=== PATIENT | female | born 1965 | race Caucasian/White ===

== ENCOUNTER 2016-12-13 20:07 | Inpatient (IN) ==
[2016-12-13 21:55] LABS: Bilirubin,Urine Negative (Negative); Blood,Urine Negative (Negative); Clarity,Urine Clear (Clear); Color,Urine Yellow (Yellow); Glucose,Urine (UA) Normal (Normal); Ketones,Urine Negative (Negative); Leukocyte Esterase,Urine Negative (Negative); Nitrite,Urine Negative (Negative); PH,Urine 6.5 pH Units (5.0-8.0); Protein,Urine Trace mg/dL (Neg-Trace); Specific Gravity,Urine 1.008 (1.010-1.025); Urobilinogen,Urine Normal (Normal)
[2016-12-13 21:56] LABS: Basophils % 0.2 %; Eosinophils % 0.1 %; Hematocrit 41.2 % (35.3-44.9); Hemoglobin 13.4 g/dL (11.5-15.4); Immature Granulocytes % 0.4 % (0-4); Lymphocytes # 2.3 K/mcL (0.6-4.6); Lymphocytes % 12.5 %; Mean Corpuscular HGB Conc 32.5 g/dL (31.6-35.5); Mean Corpuscular Hemoglobin 27.9 pg (28.0-33.3); Mean Corpuscular Volume 85.8 fL (83.0-100.0); Mean Platelet Volume 11.8 fL (9.4-12.4); Monocytes # 0.6 K/mcL (0.0-1.3); Monocytes % 3.2 %; Neutrophils # 15.3 K/mcL (1.6-8.9); Platelet Count 212 K/mcL (140-400); Red Cell Distribution Width 16.2 % (11.5-14.5); Segmented Neutrophils % 83.6 %
[2016-12-13 21:57] LABS: Bacteria,Urine Few per hpf (None-Few); Hyaline Casts,Urine None Seen per lpf (None-Few); RBC,Urine 0-3 per hpf (0-3); Squamous Epithelial Cell,Urine Many per lpf (None-Few); WBC,Urine 0-3 per hpf (0-3)
--- NOTE | 2016-12-13 22:10 | Emergency Department Note ---
Disposition Clinical Impression: NSTEMI (non-ST elevated myocardial infarction) Disposition: Admitted As Inpatient Condition: Good General Adult HPI - General Chief complaint: ED Altered Mental Status Stated complaint: bryanna,getting confused Time Seen by Provider: 12/13/16 22:05 Source: patient, family Limitations: no limitations - History of Present Illness Pain Scale: 9 - Related Data Home Medications Medication Instructions Recorded Confirmed Aspirin [Adult Low Dose Aspirin EC] 81 mg PO QAM 08/10/15 12/13/16 Atorvastatin [Lipitor] 40 mg PO QPM 08/10/15 12/13/16 Cetirizine HCl [Zyrtec] 10 mg PO QAM 08/10/15 12/13/16 Escitalopram [Lexapro] 20 mg PO QPM 08/10/15 12/13/16 Gabapentin [Neurontin] 600 mg PO QID 08/10/15 12/13/16 Glimepiride [Amaryl] 2 mg PO BID 08/10/15 12/13/16 Lansoprazole [Prevacid] 30 mg PO DAILY 08/10/15 12/13/16 Tizanidine HCl 4 mg PO Q8H PRN 08/10/15 12/13/16 Trazodone HCl [TraZODone] 100 mg PO HS 08/10/15 12/13/16 Montelukast [Singulair] 10 mg PO DAILY 02/03/16 12/13/16 Naproxen Sodium [Aleve] 220 mg PO Q12H PRN 02/03/16 12/13/16 Albuterol Sulfate [Albuterol 2 puff IH Q4H PRN 12/13/16 12/13/16 Inhaler] Metoprolol Succinate 100 mg PO DAILY 12/13/16 12/13/16 Oxycodone HCl/Acetaminophen 1 each PO QID PRN 12/13/16 12/13/16 [Percocet 7.5-325 mg Tablet] hydrOXYzine HCl [Hydroxyzine HCl] 25 mg PO BID PRN 12/13/16 12/13/16 Previous Rx's Medication Instructions Recorded Ibuprofen [Motrin] 600 mg PO TID PRN #0 08/13/15 Allergies Allergy/AdvReac Type Severity Reaction Status Date / Time pregabalin [From Lyrica] Allergy Hives Verified 08/10/15 17:43 Sulfa (Sulfonamide Allergy Hives Verified 08/10/15 17:43 Antibiotics) Varenicline [From Chantix] AdvReac Dizziness Verified 07/27/15 08:38 Past Medical History - Past Medical History Medical history: Reports: cardiomyopathy, COPD, coronary artery disease, dementia, diabetes, hyperlipidemia, hypertension, other Surgical history: Reports: breast surgery, hysterectomy, orthopedic, other, other Psychiatric history: Reports: anxiety, depression - Social History Smoking Status: Current every day smoker Smokeless Tobacco Status: No Alcohol use: Reports: none Drug use: Reports: none Physical Exam - General Limitations: no limitations General appearance: alert, in no apparent distress Course Vital Signs Temperature 98.6 F 12/13/16 20:39 Pulse Rate 90 12/13/16 20:39 Respiratory Rate 16 12/13/16 20:39 Blood Pressure 153/98 12/13/16 20:39 O2 Sat by Pulse Oximetry 94 12/13/16 20:39 Temperature 98.7 F 12/14/16 09:59 Pulse Rate 74 12/14/16 09:59 Respiratory Rate 18 12/14/16 09:59 Blood Pressure 124/75 12/14/16 09:59 O2 Sat by Pulse Oximetry 95 12/14/16 09:59 Oxygen Delivery Oxygen Delivery Room Air Medical Decision Making - Lab Data Result diagrams: 12/14/16 03:12 12/14/16 03:12 Lab Results 12/13/16 12/13/16 12/13/16 Range/Units 21:40 21:43 21:43 WBC 18.3 H (4.3-11.1) K/mcL RBC 4.80 (3.82-4.97) M/mcL Hgb 13.4 (11.5-15.4) g/dL Hct 41.2 (35.3-44.9) % MCV 85.8 (83.0-100.0) fL MCH 27.9 L (28.0-33.3) pg MCHC 32.5 (31.6-35.5) g/dL RDW 16.2 H (11.5-14.5) % Plt Count 212 (140-400) K/mcL MPV 11.8 (9.4-12.4) fL Immature Gran % 0.4 (0-4) % Seg Neutrophils % 83.6 % Lymphocytes % 12.5 % Monocytes % 3.2 % Eosinophils % 0.1 % Basophils % 0.2 % Neutrophils # 15.3 H (1.6-8.9) K/mcL Lymphocytes # 2.3 (0.6-4.6) K/mcL Monocytes # 0.6 (0.0-1.3) K/mcL Eosinophils # 0.0 (0.0-0.6) K/mcL Basophils # 0.0 (0.0-0.2) K/mcL Sodium 139 (136-145) mEq/L Potassium 4.2 (3.5-4.5) mEq/L Chloride 102 (98-109) mEq/L Carbon Dioxide 26 (19-29) mEq/L BUN 17 (7-20) mg/dL Creatinine 0.84 (0.57-1.11) mg/dL Est GFR ( Amer) > 60 (> 60) Est GFR (Non-Af Amer) > 60 (> 60) BUN/Creatinine Ratio 20 (6-26) Glucose 110 H (70-99) mg/dL Calculated Osmolality 290 (280-300) Calcium 10.1 (8.6-10.8) mg/dL Troponin I (0-0.03) ng/mL B-Natriuretic Peptide (0-100) pg/mL Urine Color Yellow (Yellow) Urine Clarity Clear (Clear) Urine pH 6.5 (5.0-8.0) pH Units Ur Specific [place] 1.008 L (1.010-1.025) Urine Protein Trace (Neg-Trace) mg/dL Urine Glucose (UA) Normal (Normal) mg/dL Urine Ketones Negative (Negative) mg/dL Urine Blood Negative (Negative) Urine Nitrite Negative (Negative) Urine Bilirubin Negative (Negative) Urine Urobilinogen Normal (Normal) mg/dL Ur Leukocyte Esterase Negative (Negative) Urine Microscopic RBC 0-3 (0-3) per hpf Urine Microscopic WBC 0-3 (0-3) per hpf Ur Squamous Epith Cells Many H (None-Few) per lpf Urine Bacteria Few (None-Few) per hpf Hyaline Casts None Seen (None-Few) per lpf Ur Culture Indicated? NO (NO) 12/13/16 12/13/16 Range/Units 21:43 21:43 WBC (4.3-11.1) K/mcL RBC (3.82-4.97) M/mcL Hgb (11.5-15.4) g/dL Hct (35.3-44.9) % MCV (83.0-100.0) fL MCH (28.0-33.3) pg MCHC (31.6-35.5) g/dL RDW (11.5-14.5) % Plt Count (140-400) K/mcL MPV (9.4-12.4) fL Immature Gran % (0-4) % Seg Neutrophils % % Lymphocytes % % Monocytes % % Eosinophils % % Basophils % % Neutrophils # (1.6-8.9) K/mcL Lymphocytes # (0.6-4.6) K/mcL Monocytes # (0.0-1.3) K/mcL Eosinophils # (0.0-0.6) K/mcL Basophils # (0.0-0.2) K/mcL Sodium (136-145) mEq/L Potassium (3.5-4.5) mEq/L Chloride (98-109) mEq/L Carbon Dioxide (19-29) mEq/L BUN (7-20) mg/dL Creatinine (0.57-1.11) mg/dL Est GFR ( Amer) (> 60) Est GFR (Non-Af Amer) (> 60) BUN/Creatinine Ratio (6-26) Glucose (70-99) mg/dL Calculated Osmolality (280-300) Calcium (8.6-10.8) mg/dL Troponin I 0.11 H* (0-0.03) ng/mL B-Natriuretic Peptide 1246 H (0-100) pg/mL Urine Color (Yellow) Urine Clarity (Clear) Urine pH (5.0-8.0) pH Units Ur Specific [place] (1.010-1.025) Urine Protein (Neg-Trace) mg/dL Urine Glucose (UA) (Normal) mg/dL Urine Ketones (Negative) mg/dL Urine Blood (Negative) Urine Nitrite (Negative) Urine Bilirubin (Negative) Urine Urobilinogen (Normal) mg/dL Ur Leukocyte Esterase (Negative) Urine Microscopic RBC (0-3) per hpf Urine Microscopic WBC (0-3) per hpf Ur Squamous Epith Cells (None-Few) per lpf Urine Bacteria (None-Few) per hpf Hyaline Casts (None-Few) per lpf Ur Culture Indicated? (NO) Attestation Statement - Attestation Attestation: I examined this patient and my medical decision-making was reviewed with the FITNESS LEADER/PA/Advanced Practice Nurse/Resident Physician. I agree with the documented findings, disposition and treatment plan as described except to the extent set forth below. Face to face time provided Patient notes intermittent bouts of confusion today as well as dyspnea. She states she has had a seizure in the past but does not take antiepileptic medications. She presents in the care of her mother by wheelchair. She is alert and lucid and appears in no acute distress. Home medication list reviewed by me
[2016-12-13 22:11] LABS: BUN/Creatinine Ratio 20 (6-26); Blood Urea Nitrogen 17 mg/dL (7-20); Calcium 10.1 mg/dL (8.6-10.8); Carbon Dioxide 26 mEq/L (19-29); Chloride 102 mEq/L (98-109); Glucose 110 mg/dL (70-99); Osmolality,Calculated 290 (280-300); Potassium 4.2 mEq/L (3.5-4.5); Sodium 139 mEq/L (136-145); eGFR For African Americans > 60 (> 60); eGFR For Non-African Americans > 60 (> 60)
[2016-12-13] MEDS ORDERED: Aspirin 325 MG TABLET PO ONE (22:26)
--- NOTE | 2016-12-13 22:50 | Emergency Department Note ---
Disposition Clinical Impression: NSTEMI (non-ST elevated myocardial infarction) Disposition: Admitted As Inpatient Condition: Good Referrals: Shawn Fisher MD [Primary Care Provider] - Forms: ED Satisfaction Letter General Adult HPI - General Chief complaint: ED Altered Mental Status Stated complaint: bryanna,getting confused Time Seen by Provider: 12/13/16 22:05 Source: patient, family Mode of arrival: private vehicle Limitations: no limitations Nursing Notes Reviewed: Yes Vital Signs Reviewed: Yes - History of Present Illness HPI Narrative: 50-year-old female presents to the ER with a chief complaint of altered mental status, shortness of breath and chest pain. Family reports that over the last few days the patient has had worsening of her mental status. They report that she has had issues recalling that her father was . Also states that he called her primary care provider's office 4 times over lab results not remembering that she had called him prior. She also reports over the last day that she has had left-sided chest pressure that resolved by the time she arrived into the room. Also states she has been short of breath. Denies history of cardiac events but does follow with cardiology. No other complaints. Pt Subjective Complaint: Altered mental status, shortness of breath, chest pain Onset (ago): day(s) Location: chest Radiation: non-radiation Pain Severity: moderate Pain Scale: 9 Quality: aching Consistency: now resolved Improves with: nothing Worsens with: nothing Associated symptoms: Reports: confusion, chest pain. Denies: fever/chills, nausea/vomiting Treatments Prior to Arrival: none - Related Data Home Medications Medication Instructions Recorded Confirmed Aspirin [Adult Low Dose Aspirin EC] 81 mg PO QAM 08/10/15 12/13/16 Atorvastatin [Lipitor] 40 mg PO QPM 08/10/15 12/13/16 Cetirizine HCl [Zyrtec] 10 mg PO QAM 08/10/15 12/13/16 Escitalopram [Lexapro] 20 mg PO QPM 08/10/15 12/13/16 Gabapentin [Neurontin] 600 mg PO QID 08/10/15 12/13/16 Glimepiride [Amaryl] 2 mg PO BID 08/10/15 12/13/16 Lansoprazole [Prevacid] 30 mg PO DAILY 08/10/15 12/13/16 Tizanidine HCl 4 mg PO Q8H PRN 08/10/15 12/13/16 Trazodone HCl [TraZODone] 100 mg PO HS 08/10/15 12/13/16 Montelukast [Singulair] 10 mg PO DAILY 02/03/16 12/13/16 Naproxen Sodium [Aleve] 220 mg PO Q12H PRN 02/03/16 12/13/16 Albuterol Sulfate [Albuterol 2 puff IH Q4H PRN 12/13/16 12/13/16 Inhaler] Metoprolol Succinate 100 mg PO DAILY 12/13/16 12/13/16 Oxycodone HCl/Acetaminophen 1 each PO QID PRN 12/13/16 12/13/16 [Percocet 7.5-325 mg Tablet] hydrOXYzine HCl [Hydroxyzine HCl] 25 mg PO BID PRN 12/13/16 12/13/16 Previous Rx's Medication Instructions Recorded Ibuprofen [Motrin] 600 mg PO TID PRN #0 08/13/15 Allergies Allergy/AdvReac Type Severity Reaction Status Date / Time pregabalin [From Lyrica] Allergy Hives Verified 08/10/15 17:43 Sulfa (Sulfonamide Allergy Hives Verified 08/10/15 17:43 Antibiotics) Varenicline [From Chantix] AdvReac Dizziness Verified 07/27/15 08:38 All systems ED: reviewed and negative except as stated. Constitutional: Denies: fever Cardiovascular: Reports: chest pain Respiratory: Reports: dyspnea. Denies: cough, wheezes Gastrointestinal: Denies: abdominal pain, nausea, vomiting Neurological: Reports: weakness. Denies: headache Past Medical History - Past Medical History Attestation: Yes The following information was validated with the patient. Source: patient Medical history: Reports: cardiomyopathy, COPD, coronary artery disease, dementia, diabetes, hyperlipidemia, hypertension, other Surgical history: Reports: breast surgery, hysterectomy, orthopedic, other, other Psychiatric history: Reports: anxiety, depression - Social History Smoking Status: Current every day smoker Smokeless Tobacco Status: No Alcohol use: Reports: none Drug use: Reports: none Physical Exam - General Limitations: no limitations General appearance: alert, in no apparent distress - Head Head exam: atraumatic, normocephalic, normal inspection - Eye Eye exam: Present: normal appearance, EOMI - ENT ENT exam: normal exam - Neck Neck exam: Present: normal inspection - Chest Chest inspection: Present: normal inspection, symmetric chest wall rise - Respiratory Respiratory exam: Present: normal lung sounds bilaterally - Cardiovascular Cardiovascular exam: Present: regular rate, normal rhythm, normal heart sounds - Abdominal Exam Abdominal exam: Present: soft, Non-Tender. Absent: tenderness - Extremities Exam Extremities exam: Present: normal inspection, full ROM - Expanded Upper Extremity Exam Shoulder exam: Present: normal inspection, full ROM Arm exam: Present: normal inspection, full ROM Elbow exam: Present: normal inspection, full ROM Forearm/Wrist exam: Present: normal inspection, full ROM Hand exam: Present: normal inspection, full ROM - Expanded Lower Extremity Exam Hip/Pelvis exam: Present: normal inspection, full ROM Upper leg exam: Present: normal inspection, full ROM Knee exam: Present: normal inspection, full ROM Lower leg exam: Present: normal inspection, full ROM Ankle exam: Present: normal inspection, full ROM Foot/toe exam: Present: normal inspection, full ROM - Neurological Exam Neurological exam: Present: alert, oriented X3, CN II-XII intact - Expanded Neurological Exam Patient oriented to: Present: person, place, time Speech: Present: fluid speech Cranial nerves: EOM function (II, III, IV, ): Normal, facial sensation (V): Normal, spinal accessory function (XI): Normal, tongue deviation (XII): Normal Motor strength - LUE: 4/5 Motor strength - RUE: 4/5 Motor strength - LLE: 4/5 Motor strength - RLE: 4/5 Sensory exam upper extremity: light touch: Normal Sensory exam lower extremity: light touch: Normal Coma Scale Eye Opening: Spontaneous Coma Scale Motor Response: Obeys Commands Coma Scale Verbal Response: Oriented Coma Scale Total: 15 - Psychiatric Psychiatric exam: Present: normal affect, normal mood - Skin Skin exam: Present: warm, dry, intact, normal color Course Course Narrative: Patient seen and examined. Vital signs reviewed. We will get an EKG, chest x- ray as well as labs and urinalysis. Disposition pending. - Reevaluation(s) Reevaluation #1: Discussed with patient about EKG for left bundle-branch block. Patient reports that she is aware that she does have a left bundle branch block and this is not new. Her troponin is 0.11 however she is currently chest pain-free. We will give her a dose of Lovenox for NSTEMI and admit for further management. - Consultations Consultation #1: Spoke with the on-call business systems developer Dr. Lopez. There was an original concern that this was a new left bundle-branch block however the patient is able to say that she knows that she has been diagnosed with it before. Her troponin was 0.11. I discussed with cardiology about heparinizing her. They recommend that if there is no other reason for the elevated troponin and that if it could likely be ACS that we should proceed with heparinizing. We will consult on behalf of the hospitalist for further management. Vital Signs Temperature 98.6 F 12/13/16 20:39 Pulse Rate 90 12/13/16 20:39 Respiratory Rate 16 12/13/16 20:39 Blood Pressure 153/98 12/13/16 20:39 O2 Sat by Pulse Oximetry 94 12/13/16 20:39 Temperature 98.6 F 12/13/16 20:39 Pulse Rate 93 12/13/16 22:41 Respiratory Rate 18 12/13/16 22:41 Blood Pressure 134/74 12/13/16 22:41 O2 Sat by Pulse Oximetry 94 12/13/16 21:47 Oxygen Delivery Oxygen Delivery Room Air Medical Decision Making - MDM Narrative Medical decision making narrative: 50-year-old female presents to the ER due to shortness of breath and concern for altered mental status. Family reports for the last few days she has been more forgetful of things. Also reports that she did have chest pain throughout yesterday but resolved by the time she got to the ER. She was short of breath at that time as well. Her EKG shows left bundle-branch block which the patient and family report is not a new finding. Her troponin is 0.11 and she is currently chest pain-free. Patient provided with a dose of Lovenox here. Patient admitted for further evaluation. - Lab Data Lab results reviewed: Yes I reviewed the patient's lab results. Result diagrams: 12/13/16 21:43 12/13/16 21:43 Lab Results 12/13/16 12/13/16 12/13/16 Range/Units 21:40 21:43 21:43 WBC 18.3 H (4.3-11.1) K/mcL RBC 4.80 (3.82-4.97) M/mcL Hgb 13.4 (11.5-15.4) g/dL Hct 41.2 (35.3-44.9) % MCV 85.8 (83.0-100.0) fL MCH 27.9 L (28.0-33.3) pg MCHC 32.5 (31.6-35.5) g/dL RDW 16.2 H (11.5-14.5) % Plt Count 212 (140-400) K/mcL MPV 11.8 (9.4-12.4) fL Immature Gran % 0.4 (0-4) % Seg Neutrophils % 83.6 % Lymphocytes % 12.5 % Monocytes % 3.2 % Eosinophils % 0.1 % Basophils % 0.2 % Neutrophils # 15.3 H (1.6-8.9) K/mcL Lymphocytes # 2.3 (0.6-4.6) K/mcL Monocytes # 0.6 (0.0-1.3) K/mcL Eosinophils # 0.0 (0.0-0.6) K/mcL Basophils # 0.0 (0.0-0.2) K/mcL Sodium 139 (136-145) mEq/L Potassium 4.2 (3.5-4.5) mEq/L Chloride 102 (98-109) mEq/L Carbon Dioxide 26 (19-29) mEq/L BUN 17 (7-20) mg/dL Creatinine 0.84 (0.57-1.11) mg/dL Est GFR ( Amer) > 60 (> 60) Est GFR (Non-Af Amer) > 60 (> 60) BUN/Creatinine Ratio 20 (6-26) Glucose 110 H (70-99) mg/dL Calculated Osmolality 290 (280-300) Calcium 10.1 (8.6-10.8) mg/dL Troponin I (0-0.03) ng/mL B-Natriuretic Peptide (0-100) pg/mL Urine Color Yellow (Yellow) Urine Clarity Clear (Clear) Urine pH 6.5 (5.0-8.0) pH Units Ur Specific [place] 1.008 L (1.010-1.025) Urine Protein Trace (Neg-Trace) mg/dL Urine Glucose (UA) Normal (Normal) mg/dL Urine Ketones Negative (Negative) mg/dL Urine Blood Negative (Negative) Urine Nitrite Negative (Negative) Urine Bilirubin Negative (Negative) Urine Urobilinogen Normal (Normal) mg/dL Ur Leukocyte Esterase Negative (Negative) Urine Microscopic RBC 0-3 (0-3) per hpf Urine Microscopic WBC 0-3 (0-3) per hpf Ur Squamous Epith Cells Many H (None-Few) per lpf Urine Bacteria Few (None-Few) per hpf Hyaline Casts None Seen (None-Few) per lpf Ur Culture Indicated? NO (NO) 12/13/16 12/13/16 Range/Units 21:43 21:43 WBC (4.3-11.1) K/mcL RBC (3.82-4.97) M/mcL Hgb (11.5-15.4) g/dL Hct (35.3-44.9) % MCV (83.0-100.0) fL MCH (28.0-33.3) pg MCHC (31.6-35.5) g/dL RDW (11.5-14.5) % Plt Count (140-400) K/mcL MPV (9.4-12.4) fL Immature Gran % (0-4) % Seg Neutrophils % % Lymphocytes % % Monocytes % % Eosinophils % % Basophils % % Neutrophils # (1.6-8.9) K/mcL Lymphocytes # (0.6-4.6) K/mcL Monocytes # (0.0-1.3) K/mcL Eosinophils # (0.0-0.6) K/mcL Basophils # (0.0-0.2) K/mcL Sodium (136-145) mEq/L Potassium (3.5-4.5) mEq/L Chloride (98-109) mEq/L Carbon Dioxide (19-29) mEq/L BUN (7-20) mg/dL Creatinine (0.57-1.11) mg/dL Est GFR ( Amer) (> 60) Est GFR (Non-Af Amer) (> 60) BUN/Creatinine Ratio (6-26) Glucose (70-99) mg/dL Calculated Osmolality (280-300) Calcium (8.6-10.8) mg/dL Troponin I 0.11 H* (0-0.03) ng/mL B-Natriuretic Peptide 1246 H (0-100) pg/mL Urine Color (Yellow) Urine Clarity (Clear) Urine pH (5.0-8.0) pH Units Ur Specific [place] (1.010-1.025) Urine Protein (Neg-Trace) mg/dL Urine Glucose (UA) (Normal) mg/dL Urine Ketones (Negative) mg/dL Urine Blood (Negative) Urine Nitrite (Negative) Urine Bilirubin (Negative) Urine Urobilinogen (Normal) mg/dL Ur Leukocyte Esterase (Negative) Urine Microscopic RBC (0-3) per hpf Urine Microscopic WBC (0-3) per hpf Ur Squamous Epith Cells (None-Few) per lpf Urine Bacteria (None-Few) per hpf Hyaline Casts (None-Few) per lpf Ur Culture Indicated? (NO) - Radiology Data Radiology results reviewed: Yes I reviewed the patient's radiology results. Chest X-Ray 12/13/16 21:22 IMPRESSION: No acute cardiopulmonary disease. D/ / Vasu Cooley MD / Vasu Cooley MD Interpreting Provider: Vasu Cooley MD - EKG Data EKG #1 EKG attestation: Yes I reviewed and interpreted this EKG. EKG results narrative: EKG demonstrates normal sinus rhythm with a rate of 84 bpm. Left bundle branch block. Left axis deviation. WI interval 138 QRS duration [address]-T wave changes from bundle branch block. No ST elevations or depressions. No acute ischemic findings. Changes from previous EKG include left bundle branch block. Chelle - Chelle Situation: Demographics, MOA Background: Presenting Complaint, Relevant PMH, Meds, & Allergies Assessment: Vital Signs, Course and respsone to treatment, Exam Concerns, Patient/Family Expectation, Pertinant Lab Results, Outstanding Labs Recommendation: Barrier(s) to disposition, Recommendation based on pending studies, treatments, or consults SEvelin Report Given to: Dr. Antonio Corbett Repor Time: 23:40
[2016-12-13] MEDS ORDERED: *HR* Enoxaparin 60 MG/0.6 ML SYRINGE SQ STA (22:51)
[2016-12-14] MEDS ORDERED: Ipratropium/Albuterol Neb 3 ML IH PRN (01:34)
[2016-12-14] MEDS ORDERED: Nitroglycerin 0.4 MG TAB.SUBL SL PRN (01:34)
[2016-12-14] MEDS ORDERED: Naloxone 0.4 MG/ML INJ IVP PRN (01:38)
[2016-12-14] MEDS ORDERED: *HR* Morphine 2 MG/ML SYRINGE IVP PRN (01:38)
[2016-12-14] MEDS ORDERED: Acetaminophen 325 MG TABLET PO PRN (01:38)
[2016-12-14] MEDS ORDERED: Ondansetron 4 MG/2 ML VIAL IVP PRN (01:38)
--- NOTE | 2016-12-14 01:43 | Internal Med History&Physical ---
Date of Encounter: 12/14/16 Time of Encounter: 01:43 Assessment and Plan (1) Sepsis Current visit: Yes Status: Acute Sepsis possibly secondary to acute meningitis viral versus bacterial Start Rocephin, IV vancomycin and acyclovir ( may discontinue if lumbar puncture negative) Schedule a lumbar puncture with interventional radiology Blood cultures, order stat CT scan, hold Lovenox to schedule a lumbar puncture Omeprazole for GI prophylaxis and sequential compression devices for DVT prophylaxis. Admitted as inpatient, expected to stay more than 2 midnights. Full code. Time spent on this admission 40 minutes. High risk due to sepsis Qualifiers: Sepsis type: sepsis due to unspecified organism Qualified Code(s): A41.9 - Sepsis, unspecified organism (2) NSTEMI (non-ST elevated myocardial infarction) Current visit: Yes Status: Acute Elevated troponin possible demand ischemia versus non-STEMI Hold Lovenox for lumbar puncture, may resume afterwards Cardiology consult, may continue aspirin, metoprolol Lipitor Telemetry, monitor troponins, check lipid panel, morphine and nitroglycerin as needed (3) Heart murmur, systolic Current visit: No Status: Acute (4) DM2 (diabetes mellitus, type 2) Current visit: No Status: Acute Order insulin sliding scale Qualifiers: Diabetes mellitus complication status: without complication Diabetes mellitus mcc insulin use: without drafter commercial use Qualified Code(s): E11.9 - Type 2 diabetes mellitus without complications (5) Aortic stenosis Current visit: No Status: Acute (6) CAD (coronary artery disease) Current visit: No Status: Acute Qualifiers: Coronary Disease-Associated Artery/Lesion type: [place] artery [place] vs. transplanted heart: [place] heart Associated angina: without angina Qualified Code(s): I25.10 - Atherosclerotic heart disease of [place] coronary artery without angina pectoris Internal Medicine - H&P: HPI Chief complaint: AMS Admitted From: Emergency Dept History of present illness: Ms. Castillo is a 50 year old female with a past medical history of cardiomyopathy, diastolic and systolic CHF, neuropathy, diabetes type 2 not insulin-dependent, aortic stenosis, COPD not oxygen dependent who was brought by her family members as she has been more confused since yesterday. The patient appeared lethargic, complaining of severe headache, photophobia, neck pain/rigidity, no lumbar puncture has been done at the emergency room. Patient was also complaining of chest pain 9 out of 10 in intensity her troponin was 0.11, cardiology was contacted by the ER physician and Lovenox was recommended, her EKG showed an unchanged left bundle branch block, BNP is 1246, white blood cell count is 18.3 heart rate 93, the patient does not remember whether she has been having fevers or not, complains of a severe headache 8 out of 10 at the moment, received Lovenox already. Chest x-ray is unremarkable. Most of the history was obtained from the family. Past Med Surg Social Fam HX - Past Medical History Medical history: cardiomyopathy, COPD (Not oxygen dependent), coronary artery disease, dementia, diabetes (Not insulin-dependent), hyperlipidemia, hypertension, other (Systolic and diastolic CHF with an prior echocardiogram ejection fraction of 45-50%, moderate diastolic dysfunction, moderate aortic stenosis, asthma, neuropathy, depression, tobacco use, seizure disorder without any prescribed medications, nephrolithiasis, chronic left bundle branch block, chronic leukocytosis) Psychiatric history: anxiety, depression - Past Surgical History Surgical History: breast surgery, hysterectomy, orthopedic, other, other ( Cervical fusion) - Social History Smoking Status: Current every day smoker Packs per day: One pack per day Smokeless Tobacco Status: No Alcohol use: none Drug use: none - Family History Mother Hx Family Cardiac Disorders: Yes Father Hx Family Cardiac Disorders: Yes - Additional Family History Additional family history: Mother with myocardial infarction and father with CVA Internal Medicine - H&P: Meds Aspirin [Adult Low Dose Aspirin EC] 81 mg PO QAM 08/10/15 [History] Atorvastatin [Lipitor] 40 mg PO QPM 08/10/15 [History] Cetirizine HCl [Zyrtec] 10 mg PO QAM 08/10/15 [History] Escitalopram [Lexapro] 20 mg PO QPM 08/10/15 [History] Gabapentin [Neurontin] 600 mg PO QID 08/10/15 [History] Glimepiride [Amaryl] 2 mg PO BID 08/10/15 [History] Lansoprazole [Prevacid] 30 mg PO DAILY 08/10/15 [History] Tizanidine HCl 4 mg PO Q8H PRN 08/10/15 [History] Trazodone HCl [TraZODone] 100 mg PO HS 08/10/15 [History] Ibuprofen [Motrin] 600 mg PO TID PRN #0 08/13/15 [Rx] Montelukast [Singulair] 10 mg PO DAILY 02/03/16 [History] Naproxen Sodium [Aleve] 220 mg PO Q12H PRN 02/03/16 [History] Albuterol Sulfate [Albuterol Inhaler] 2 puff IH Q4H PRN 12/13/16 [History] Metoprolol Succinate 100 mg PO DAILY 12/13/16 [History] Oxycodone HCl/Acetaminophen [Percocet 7.5-325 mg Tablet] 1 each PO QID PRN 12/13 [History] hydrOXYzine HCl [Hydroxyzine HCl] 25 mg PO BID PRN 12/13/16 [History] Allergies pregabalin [From Lyrica] Allergy (Verified 08/10/15 17:43) Hives Sulfa (Sulfonamide Antibiotics) Allergy (Verified 08/10/15 17:43) Hives Varenicline [From Chantix] Adverse Reaction (Verified 07/27/15 08:38) Dizziness All Systems PM: A 10-system review of systems was performed and is negative for pertinent findings except as documented above in the HPI. Review of systems: Denies any shortness of breath, complains of still of chest pressure 7 out of 10 in intensity without any radiation. Feels extremely weak, denies dysuria. Other systems out of the 10 reviewed were negative - Constitutional Vitals: Temp Pulse Resp BP Pulse Ox 98.6 F 92 16 155/84 94 12/13/16 20:39 12/14/16 00:09 12/14/16 01:19 12/14/16 01:19 12/13/16 21:47 General appearance: Present: A&O X 3 (Confused at times) - Head Head exam: Present: atraumatic, normocephalic Additional comments: Neck stiffness and tenderness - Eye Eye exam: Present: PERRL, conjuntiva pink, sclera anicteric Pupils: Present: PERRL - Neck Neck exam general surgery: Present: supple, trachea midline. Absent: lymphadenopathy - Respiratory Respiratory exam: Present: CTAB. Absent: accessory muscle use, rales, rhonchi, wheezes - Cardiovascular Cardiovascular exam: Present: RRR, +S1, +S2, systolic murmur (2 out of 6 radiated to the aortic area). Absent: diastolic murmur, gallop, rubs - GI/Abdominal GI/Abdominal exam: Present: normal bowel sounds, soft, no peritoneal signs. Absent: distended, tenderness - Extremities Exam Extremities exam: Present: warm, radial pulses palpable and symetrical. Absent : calf tenderness, cyanotic, pedal edema - Neurological Exam Neurological exam: Present: CN II-XII intact, oriented X3, no focal deficits. Absent: pronater drift, facial droop, speech deficit - Skin Skin exam: Present: dry, intact Internal Med - H&P Results - Labs CBC & Chem 7: 12/13/16 21:43 12/13/16 21:43
[2016-12-14] MEDS ORDERED: *HR* Dextrose 50 % in Water (Syg) 50 ML SYRINGE IVP PRN (01:54)
[2016-12-14] MEDS ORDERED: Dextrose Gel 15 GM PO PRN ×2 (01:54)
[2016-12-14] MEDS ORDERED: D5% in Water 1,000 ML IVC PRN (01:54)
[2016-12-14] MEDS ORDERED: Vancomycin 750 MG in D5% in Water 250 ML IVPB SCH (02:00)
[2016-12-14] MEDS: Vancomycin 750 MG in D5% in Water 250 ML IVPB SCH ×2 (04:00→13:09)
[2016-12-14] MEDS: *HR* OxyCODONE/APAP 7.5/325 TABLET PO PRN ×2 (04:00→16:51)
[2016-12-14] MEDS: 0.9 % Sodium Chloride 1,000 ML IVC SCH (04:02)
[2016-12-14] MEDS ORDERED: tiZANidine 4 MG TABLET PO PRN ×2 (04:16→08:57)
[2016-12-14 04:38] LABS: Basophils % 0.2 %; Eosinophils # 0.1 K/mcL (0.0-0.6); Eosinophils % 0.8 %; Hematocrit 40.3 % (35.3-44.9); Immature Granulocytes % 0.3 % (0-4); Lymphocytes # 4.9 K/mcL (0.6-4.6); Lymphocytes % 31.7 %; Mean Corpuscular HGB Conc 32.3 g/dL (31.6-35.5); Mean Corpuscular Hemoglobin 27.8 pg (28.0-33.3); Mean Corpuscular Volume 86.3 fL (83.0-100.0); Mean Platelet Volume 12.6 fL (9.4-12.4); Monocytes % 6.7 %; Neutrophils # 9.3 K/mcL (1.6-8.9); Platelet Count 208 K/mcL (140-400); Red Blood Count 4.67 M/mcL (3.82-4.97); Red Cell Distribution Width 16.2 % (11.5-14.5); Segmented Neutrophils % 60.3 %
[2016-12-14 05:01] LABS: BUN/Creatinine Ratio 19 (6-26); Blood Urea Nitrogen 14 mg/dL (7-20); Carbon Dioxide 25 mEq/L (19-29); Chloride 103 mEq/L (98-109); Chol/HDL Ratio 5.7 (0-4.9); Cholesterol 233 mg/dL (< 200); Glucose 84 mg/dL (70-99); HDL Cholesterol 41 mg/dL (40-59); LDL Cholesterol,Calculated 165 mg/dL (0-99); Osmolality,Calculated 290 (280-300); Potassium 3.7 mEq/L (3.5-4.5); Sodium 140 mEq/L (136-145); Triglycerides 134 mg/dL (< 150); eGFR For African Americans > 60 (> 60); eGFR For Non-African Americans > 60 (> 60)
[2016-12-14] MEDS: Insulin LISPRO 300 UNITS/3 ML VIAL SQ SCH ×3 (08:10→16:48)
[2016-12-14] MEDS: Nicotine 21 MG PATCH.TD24 TD SCH (08:28)
[2016-12-14] MEDS ORDERED: tiZANidine 4 MG TABLET PO SCH (09:00)
[2016-12-14] MEDS ORDERED: Aspirin Enteric Coated 325 MG Tablet PO SCH (09:00)
[2016-12-14] MEDS: Acyclovir 550 MG in D5% in Water 100 ML IVPB SCH ×2 (09:24→16:46)
--- NOTE | 2016-12-14 11:07 | Cardiology Consult Note ---
Date of Encounter: 12/14/16 Time of Encounter: 11:03 Assessment and Plan (1) Elevated troponin Current Visit: No Status: Acute Troponin 0.11, 0.13 in setting of suspected acute meningitis (viral vs bacterial ). Likely secondary to demand ischemia, nondiagnostic for ACS. Pt does report constant chest pressure over the past 2 days, not worsened on exertion, atypical. Dyspnea x 1 day. No heparin gtt or Lovenox since suspected cause is demand ischemia. Pt also going for lumbar puncture today. New LBBB on EKG. [facility] 2013 mild 1 vessel CAD. Pt is on ASA, Statin, BB. Echo 11/04/16 EF 45-50%, moderate . Given new LBBB will recheck echo to evaluate EF. If no significant change, anticipate cardiology sign off. (2) Aortic stenosis Current Visit: No Status: Acute Moderate on echo 10/2016. MG 25mmHg, PV 3.58 m/s. (3) CAD (coronary artery disease) Current Visit: No Status: Acute Mild 1 vessel disease on [facility] 03/2014. ASA, Statin, BB. Qualifiers: Coronary Disease-Associated Artery/Lesion type: [place] artery [place] vs. transplanted heart: [place] heart Associated angina: without angina Qualified Code(s): I25.10 - Atherosclerotic heart disease of [place] coronary artery without angina pectoris Discussion w patient/family: The assessment and plan as outlined above was discussed with the patient and/or family members who expressed understanding and agreement. All questions were answered. Thank you for involving us in the care of your patient. Please call with any questions. I will discuss all the above with Dr. Bradley and make changes as necessary. History of Present Illness Consult date: 12/14/16 Requesting physician: Stephanie Goncalves Consult reason: elevated troponin Chief complaint: headache, chest pressure History of present illness: Ms. Castillo is a 50 year old female with PMH of cardiomyopathy, diastolic and systolic CHF, neuropathy, diabetes type 2 not insulin-dependent, moderate aortic stenosis, mild CAD, COPD not oxygen dependent who was brought by her family members as she has been more confused . The patient is lethargic on my exam, but according to admitting HPI, pt appeared lethargic, complaining of severe headache, photophobia, neck pain/rigidity. She was also complaining of chest pain 9 out of 10 in intensity, troponin 0.11, 0.13. BNP is 1246. Pt is able to tell me that her chest pressure has been constant for 2 days with dyspnea that started yesterday. EKG shows a new LBBB. Recent CV testing: Echo 11/04/16 EF 45-50%, moderate diastolic dysfunction, mildly calcified aortic valve leaflets and annulus, mild AR. Moderate MG 25 and PV 3.58. [facility] 03/21/14: Mild 1 vessel CAD EF 45%. Cardiac MRI at [facility] 06/13/15: Normal biventricular systolic function with no imaging evidence of LV noncompaction. Trileaflet AV with mild . Past Med Surg Social Fam HX - Past Medical History Medical history: cardiomyopathy, COPD, coronary artery disease, dementia, diabetes, hyperlipidemia, hypertension, valvular heart disease, other Psychiatric history: anxiety, depression - Past Surgical History Surgical History: breast surgery, hysterectomy, orthopedic, other, other - Social History Smoking Status: Current every day smoker Packs per day: One pack per day Smokeless Tobacco Status: No Alcohol use: none Drug use: none - Family History Mother Living Status: Still Living Hx Family Cardiac Disorders: Yes Father Living Status: Age at : 78 Cause of : massive heart attack Hx Family Cardiac Disorders: Yes Hx Family Psychosocial Disorders: Yes Medications and Allergies Aspirin [Adult Low Dose Aspirin EC] 81 mg PO QAM 08/10/15 [History] Atorvastatin [Lipitor] 40 mg PO QPM 08/10/15 [History] Cetirizine HCl [Zyrtec] 10 mg PO QAM 08/10/15 [History] Escitalopram [Lexapro] 20 mg PO QPM 08/10/15 [History] Gabapentin [Neurontin] 600 mg PO QID 08/10/15 [History] Glimepiride [Amaryl] 2 mg PO BID 08/10/15 [History] Lansoprazole [Prevacid] 30 mg PO DAILY 08/10/15 [History] Tizanidine HCl 4 mg PO Q8H PRN 08/10/15 [History] Trazodone HCl [TraZODone] 100 mg PO HS 08/10/15 [History] Ibuprofen [Motrin] 600 mg PO TID PRN #0 08/13/15 [Rx] Montelukast [Singulair] 10 mg PO DAILY 02/03/16 [History] Naproxen Sodium [Aleve] 220 mg PO Q12H PRN 02/03/16 [History] Albuterol Sulfate [Albuterol Inhaler] 2 puff IH Q4H PRN 12/13/16 [History] Metoprolol Succinate 100 mg PO DAILY 12/13/16 [History] Oxycodone HCl/Acetaminophen [Percocet 7.5-325 mg Tablet] 1 each PO QID PRN 12/13 [History] hydrOXYzine HCl [Hydroxyzine HCl] 25 mg PO BID PRN 12/13/16 [History] Allergies pregabalin [From Lyrica] Allergy (Verified 08/10/15 17:43) Hives Sulfa (Sulfonamide Antibiotics) Allergy (Verified 08/10/15 17:43) Hives Varenicline [From Chantix] Adverse Reaction (Verified 07/27/15 08:38) Dizziness All Systems Review: A 10-system review of systems was performed and is negative for pertinent findings except as documented above in the HPI. - Constitutional Constitutional: headache(s), lethargy - Cardiovascular Cardiovascular: as per HPI, chest pain at rest, chest pain with exertion, dyspnea at rest, dyspnea on exertion Physical Examination Vital Signs, Last 4 Hours Temp Pulse Resp BP Pulse Ox 12/14/16 09:59 98.7 F 74 18 124/75 95 12/14/16 08:15 93 Vital Signs Temp Pulse Resp BP Pulse Ox 12/14/16 09:59 98.7 F 74 18 124/75 95 12/14/16 08:15 93 12/14/16 06:32 98.7 F 75 16 156/89 93 12/14/16 02:42 98.3 F 88 15 134/85 94 12/14/16 01:19 16 155/84 12/14/16 00:09 92 16 160/83 12/13/16 22:41 93 18 134/74 12/13/16 21:47 85 16 122/79 94 12/13/16 20:39 98.6 F 90 16 153/98 94 Intake and Output 12/13/16 12/14/16 12/14/16 23:59 07:59 15:59 Intake Total 100 / 100 0 / 0 Output Total 0 / 0 0 / 0 Balance 100 / 100 0 / 0 Intake: IV Fluids 100 / 100 Rocephin 2,000 MG In 100 / 100 Dextrose 5% (Minibag+) 100 ML 100 ML @ 200 mls/ hr IVPB BID [facility] Rx#: [id number] Oral 0 / 0 0 / 0 Output: Urine 0 / 0 0 / 0 Other: Weight 55.973 kg 56.1 kg Blood Glucose* 108 130 Patient Weight 12/14/16 23:59 Weight 56.1 kg General: No Apparent Distress, Other (lethargic) HEENT: Atraumatic, Normocephaly, Mucus Membranes Moist Neck: No JVD, Normal carotid pulses Cardiac: Reg Rate and Rhythm, Normal S1 and S2, Other (2/6 CLAUS) Lungs: Normal Breath Sounds Neuro: Other (lethargic on exam) Abdomen: Soft, Non-Tender Skin: No rashes noted on visualized skin Musculoskeletal: No Chest Wall Tenderness Extremities: No Clubbing, No Cyanosis, No Edema, Normal Pulses Results 12/14/16 03:12 12/14/16 03:12 Lab Results 12/14/16 12/14/16 12/14/16 03:12 03:12 03:12 WBC 15.4 H Hgb 13.0 Hct 40.3 Plt Count 208 Sodium 140 Potassium 3.7 Chloride 103 Carbon Dioxide 25 BUN 14 Creatinine 0.73 Glucose 84 Calcium 10.0 Troponin I 0.13 H* 12/14/16 09:19 WBC Hgb Hct Plt Count Sodium Potassium Chloride Carbon Dioxide BUN Creatinine Glucose Calcium Troponin I 0.08 H* Short CBC 12/14/16 12/13/16 Range/Units 03:12 21:43 WBC 15.4 H 18.3 H (4.3-11.1) K/mcL Hgb 13.0 13.4 (11.5-15.4) g/dL Hct 40.3 41.2 (35.3-44.9) % Plt Count 208 212 (140-400) K/mcL Neutrophils # 9.3 H 15.3 H (1.6-8.9) K/mcL BMP 12/14/16 12/13/16 Range/Units 03:12 21:43 Sodium 140 139 (136-145) mEq/L Potassium 3.7 4.2 (3.5-4.5) mEq/L Chloride 103 102 (98-109) mEq/L Carbon Dioxide 25 26 (19-29) mEq/L BUN 14 17 (7-20) mg/dL Creatinine 0.73 0.84 (0.57-1.11) mg/dL Glucose 84 110 H (70-99) mg/dL Calcium 10.0 10.1 (8.6-10.8) mg/dL Cardiac Enzymes 12/14/16 12/14/16 12/13/16 Range/Units 09:19 03:12 21:43 Troponin I 0.08 H* 0.13 H* 0.11 H* (0-0.03) ng/mL Urine 12/13/16 Range/Units 21:40 Urine Color Yellow (Yellow) Urine Clarity Clear (Clear) Urine pH 6.5 (5.0-8.0) pH Units Ur Specific [place] 1.008 L (1.010-1.025) Urine Protein Trace (Neg-Trace) mg/dL Urine Glucose (UA) Normal (Normal) mg/dL Impressions Chest X-Ray 12/13/16 21:22 IMPRESSION: No acute cardiopulmonary disease. D/ / Vasu Cooley MD / Vasu Cooley MD Interpreting Provider: Vasu Cooley MD Head CT 12/14/16 01:37 IMPRESSION: No acute intracranial abnormality. D/ / Vasu Cooley MD / Vasu Cooley MD Interpreting Provider: Vasu Cooley MD Active Medications Acetaminophen (Tylenol) 650 mg PO Q6HR PRN PRN Reason: Mild Pain (1-3) Stop: 06/15/17 01:39 Albuterol/Ipratropium (Duoneb) 3 ml IH [id number] PRN; Protocol PRN Reason: Shortness Of Breath/Wheezing Stop: 06/15/17 01:35 Aspirin (Aspirin Ec) 325 mg PO DAILY BONNIE Stop: 06/15/17 09:01 Last Admin: 12/14/16 08:28 Dose: 325 mg Atorvastatin Calcium (Lipitor) 40 mg PO HS BONNIE Stop: 06/15/17 21:01 Dextrose/Water (Dextrose 50% (Syg)) 25 ml IVP AD PRN PRN Reason: Hypoglycemia Stop: 06/15/17 01:55 Glucagon (Glucagen) 1 mg IM ONCE PRN PRN Reason: Hypoglycemia Stop: 06/15/17 01:55 Glucose (Gluctose) 15 gm PO ONCE PRN PRN Reason: Hypoglycemia Stop: 06/15/17 01:55 Glucose (Gluctose) 30 gm PO ONCE PRN PRN Reason: Hypoglycemia Stop: 06/15/17 01:55 Acyclovir 550 mg/ Dextrose 100 mls @ 100 mls/hr IVPB Q8HR [facility] Stop: 06/15/17 08:01 Last Admin: 12/14/16 09:24 Dose: 100 mls/hr Ceftriaxone Sodium 2,000 mg/ (Dextrose) 100 mls @ 200 mls/hr IVPB BID [facility] Stop: 06/15/17 02:01 Last Admin: 12/14/16 08:29 Dose: 200 mls/hr Sodium Chloride (0.9 % Sodium Chloride) 1,000 mls @ 75 mls/hr IVC .[id number] [facility] Stop: 06/15/17 01:46 Last Admin: 12/14/16 04:02 Dose: 75 mls/hr Dextrose (Dextrose 5%) 1,000 mls @ 100 mls/hr IVC .Q10H PRN PRN Reason: HYPOGLYCEMIA Stop: 06/15/17 01:55 Vancomycin HCl 750 mg/ (Dextrose) 250 mls @ 250 mls/hr IVPB Q12H [facility] Stop: 06/15/17 02:31 Last Admin: 12/14/16 04:00 Dose: 250 mls/hr Insulin Human Lispro (Humalog) 0 units SQ TIDAC BONNIE PRN Reason: Protocol Stop: 06/15/17 07:31 Last Admin: 12/14/16 08:10 Dose: Not Given Metoprolol Tartrate (Lopressor) 12.5 mg PO BID [facility] Stop: 06/15/17 09:01 Last Admin: 12/14/16 08:28 Dose: 12.5 mg Morphine Sulfate (Morphine Sulfate) 4 mg IVP Q2H PRN PRN Reason: Severe Pain (7-10) Stop: 06/15/17 01:39 Naloxone HCl (Narcan) 0.4 mg IVP Q2MIN PRN PRN Reason: Opioid Reversal Stop: 06/15/17 01:39 Nicotine (Nicoderm) 21 mg TD DAILY BONNIE PRN Reason: Protocol Stop: 06/15/17 09:01 Last Admin: 12/14/16 08:28 Dose: 21 mg Nitroglycerin (Nitroglycerin) 0.4 mg SL Q5MIN PRN PRN Reason: Chest Pain Stop: 06/15/17 01:35 Omeprazole (Prilosec) 40 mg PO DAILY@0630 BONNIE PRN Reason: Protocol Stop: 06/15/17 06:31 Last Admin: 12/14/16 06:54 Dose: 40 mg Ondansetron HCl (Zofran) 4 mg IVP Q8HR PRN PRN Reason: Nausea And Vomiting Stop: 06/15/17 01:39 Oxycodone/Acetaminophen (Percocet 7.5/325) 1 each PO Q6HR PRN PRN Reason: moderate pain (4-6) Stop: 06/15/17 03:25 Last Admin: 12/14/16 04:00 Dose: 1 each Tizanidine HCl (Zanaflex) 4 mg PO TID PRN PRN Reason: Muscle Spasm Stop: 06/15/17 09:01 - Imaging and Cardiology Chest Xray: report reviewed Echo: report reviewed Cardiac cath: report reviewed - EKG Interpretation EKG results cardiology: personally reviewed (SR, new LBBB), left bundle branch block, other (24 hour tele AVG HR 82, SR, no significant pauses or arrhythmias.) Consult Discharge Plan - Plan Referrals: Shwan Fisher MD [Primary Care Provider] -
[2016-12-14] MEDS ORDERED: *HR* OxyCODONE/APAP 10/325 TABLET PO PRN (12:07)
[2016-12-14] MEDS ORDERED: Aminoglycoside Consult 1 EACH MC ONE (12:29)
[2016-12-14 12:44] LABS: Red Blood Cell,CSF < 0.002 M/mcL
[2016-12-14 12:50] LABS: Glucose,CSF 72 mg/dL (40-70); Total Protein,CSF 44 mg/dL (15-45)
[2016-12-14] MEDS: Loratadine 10 MG TABLET PO SCH (13:09)
[2016-12-14] MEDS: *HR* OxyCODONE/APAP 10/325 TABLET PO PRN (13:09)
--- NOTE | 2016-12-14 14:03 | Event Note ---
Date of Encounter: 12/14/16 Time of Encounter: 10:00 Patient is feeling somewhat better this morning. Continues to have persistent chest pain is substernal in location. No palpitations or shortness of breath. Awaiting lumbar puncture today. On examination, patient does not appear to have neck stiffness. She does wood ve photophobia. Negative Kernig's sign.follow results of lumbar puncture. Cardiology consult appreciated.
--- NOTE | 2016-12-14 15:33 | Electrocardiograph Report ---
[place] [id number] Test Date: 2016-12-13 Pat Name: Zee Castillo Department: 103 Room: 2A32 Gender: F Electric Range [employer]: ROWENA : 1965 Requested By: Helder Winslow Order Number: [id number] Reading MD: Shemar Meehan MD Measurements Intervals [place] Rate: 84 P: 38 UT: 138 QRS: -56 QRSD: 146 T: 228 QT: 444 QTc: 485 Interpretive Statements SINUS RHYTHM MARKED LEFT AXIS DEVIATION LEFT BUNDLE BRANCH BLOCK Electronically Signed On 12-14-2016 15:32:00 EDT by Shemar Meehan MD
[2016-12-14 15:55] LABS: Appearance,CSF Clear (Clear)
[2016-12-14] MEDS ORDERED: traZODone 50 MG TABLET PO SCH (21:00)
[2016-12-15] MEDS: Vancomycin 750 MG in D5% in Water 250 ML IVPB SCH (02:23)
[2016-12-15] MEDS: *HR* OxyCODONE/APAP 10/325 TABLET PO PRN ×2 (02:25→09:30)
[2016-12-15] MEDS: Acyclovir 550 MG in D5% in Water 100 ML IVPB SCH (04:11)
[2016-12-15 04:45] LABS: Basophils % 0.3 %; Eosinophils # 0.4 K/mcL (0.0-0.6); Eosinophils % 3.7 %; Hematocrit 37.2 % (35.3-44.9); Hemoglobin 11.7 g/dL (11.5-15.4); Immature Granulocytes % 0.4 % (0-4); Lymphocytes # 3.8 K/mcL (0.6-4.6); Lymphocytes % 37.4 %; Mean Corpuscular HGB Conc 31.5 g/dL (31.6-35.5); Mean Corpuscular Hemoglobin 27.3 pg (28.0-33.3); Mean Corpuscular Volume 86.9 fL (83.0-100.0); Mean Platelet Volume 12.1 fL (9.4-12.4); Monocytes # 0.9 K/mcL (0.0-1.3); Monocytes % 8.9 %; Platelet Count 177 K/mcL (140-400); Red Blood Count 4.28 M/mcL (3.82-4.97); Red Cell Distribution Width 15.9 % (11.5-14.5); Segmented Neutrophils % 49.3 %
[2016-12-15 05:05] LABS: BUN/Creatinine Ratio 14 (6-26); Blood Urea Nitrogen 11 mg/dL (7-20); Carbon Dioxide 24 mEq/L (19-29); Chloride 106 mEq/L (98-109); Glucose 120 mg/dL (70-99); Osmolality,Calculated 289 (280-300); Potassium 3.5 mEq/L (3.5-4.5); Sodium 139 mEq/L (136-145); eGFR For African Americans > 60 (> 60); eGFR For Non-African Americans > 60 (> 60)
[2016-12-15] MEDS: Insulin LISPRO 300 UNITS/3 ML VIAL SQ SCH ×2 (08:47→12:30)
[2016-12-15] MEDS ORDERED: Aspirin Enteric Coated 81 MG Tablet PO SCH (09:00)
[2016-12-15] MEDS: 0.9 % Sodium Chloride 1,000 ML IVC SCH (09:29)
[2016-12-15] MEDS: Nicotine 21 MG PATCH.TD24 TD SCH (09:29)
[2016-12-15] MEDS: Loratadine 10 MG TABLET PO SCH (09:30)
--- NOTE | 2016-12-15 09:59 | Cardiology Progress Note ---
Date of Encounter: 12/15/16 Time of Encounter: 09:57 Assessment and Plan (1) Elevated troponin Current Visit: No Status: Acute Troponin 0.11, 0.13, 0.08, 0.05 in setting of suspected acute viral vs bacterial illness, leukocytosis. Likely secondary to demand ischemia, nondiagnostic for ACS. Preliminary CSF smear/ culture was negative. Pt does report constant chest pressure over 2 days, not worsened on exertion, atypical. Dyspnea x 1 day. New LBBB on EKG noted. [facility] 2013 mild 1 vessel CAD. Pt is on ASA, Statin, BB. Echo 11/04/16 EF 45-50%, moderate . Given new LBBB echo ordered. No significant change in LV function on echo. No further cardiac testing recommended. Cardiology will sign off. [facility] will coordinate 2-3 week hospital f/u with Dr. Preston. (2) Aortic stenosis Current Visit: No Status: Acute Moderate on echo 10/2016. MG 25mmHg, PV 3.58 m/s. Continue monitoring. (3) CAD (coronary artery disease) Current Visit: No Status: Acute Mild 1 vessel disease on [facility] 03/2014. ASA, Statin, BB. Qualifiers: Coronary Disease-Associated Artery/Lesion type: [place] artery [place] vs. transplanted heart: [place] heart Associated angina: without angina Qualified Code(s): I25.10 - Atherosclerotic heart disease of [place] coronary artery without angina pectoris Discussion w patient/family: The assessment and plan as outlined above was discussed with the patient and/or family members who expressed understanding and agreement. All questions were answered. Thank you for involving us in the care of your patient. Please call with any questions. Subjective Principal diagnosis: Possibe bacterial/ viral infection, chest pain Interval history: Ms. Castillo reports chest pain is resolved. C/o mild SOB with ambulation to the bathroom this morning. Reports she is not getting all of her medications. She usually uses an inhaler at home. Objective Vital Signs, Last 4 Hours Pulse Resp BP Pulse Ox 12/15/16 09:45 94 12/15/16 07:40 80 16 145/88 94 General: Conversant, No Apparent Distress HEENT: Atraumatic, Normocephaly, Mucus Membranes Moist Neck: No JVD, Normal carotid pulses Cardiac: Reg Rate and Rhythm, Normal S1 and S2, Other (2/6 systolic murmur) Lungs: Normal Breath Sounds, No Wheeze, Rales, Rhonchi Neuro: Alert and responsive, No focal deficits noted Abdomen: Soft, Non-Tender Skin: No rashes noted on visualized skin Musculoskeletal: No Chest Wall Tenderness Extremities: No Clubbing, No Cyanosis, No Edema, Normal Pulses Results 12/15/16 04:33 12/15/16 04:33 Lab Results 12/14/16 12/14/16 12/15/16 09:19 15:13 04:33 WBC 10.2 Hgb 11.7 Hct 37.2 Plt Count 177 Sodium Potassium Chloride Carbon Dioxide BUN Creatinine Glucose Calcium Troponin I 0.08 H* 0.05 H* 12/15/16 04:33 WBC Hgb Hct Plt Count Sodium 139 Potassium 3.5 Chloride 106 Carbon Dioxide 24 BUN 11 Creatinine 0.79 Glucose 120 H Calcium 9.0 Troponin I - Imaging and Cardiology Echo: report reviewed - EKG Interpretation EKG results cardiology: personally reviewed - VTE Documentation of Mechanical Device: Intermittent pneumatic compression device Consult Discharge Plan - Plan Referrals: Shawn Fisher MD [Primary Care Provider] - 12/20/16 9:45 am
--- NOTE | 2016-12-15 11:30 | Discharge Summary ---
Date of Encounter: 12/15/16 Time of Encounter: 11:20 - Discharge Diagnosis (1) Elevated troponin Priority: Primary Status: Acute (2) CAD (coronary artery disease) Priority: Secondary Status: Chronic Qualifiers: Coronary Disease-Associated Artery/Lesion type: [place] artery [place] vs. transplanted heart: [place] heart Associated angina: without angina Qualified Code(s): I25.10 - Atherosclerotic heart disease of [place] coronary artery without angina pectoris (3) Aortic stenosis Priority: Secondary Status: Chronic (4) DM2 (diabetes mellitus, type 2) Priority: Secondary Status: Acute Qualifiers: Diabetes mellitus complication status: without complication Diabetes mellitus fdc insulin use: without fdc use Qualified Code(s): E11.9 - Type 2 diabetes mellitus without complications (5) NSTEMI (non-ST elevated myocardial infarction) Priority: Secondary Status: Ruled-out (6) Sepsis Priority: Secondary Status: Ruled-out Qualifiers: Sepsis type: sepsis due to unspecified organism Qualified Code(s): A41.9 - Sepsis, unspecified organism - Discharge Medications Home Medications: Aspirin [Adult Low Dose Aspirin EC] 81 mg PO QAM 08/10/15 [History] Atorvastatin [Lipitor] 40 mg PO QPM 08/10/15 [History] Cetirizine HCl [Zyrtec] 10 mg PO QAM 08/10/15 [History] Escitalopram [Lexapro] 20 mg PO QPM 08/10/15 [History] Gabapentin [Neurontin] 600 mg PO QID 08/10/15 [History] Glimepiride [Amaryl] 2 mg PO BID 08/10/15 [History] Lansoprazole [Prevacid] 30 mg PO DAILY 08/10/15 [History] Tizanidine HCl 4 mg PO Q8H PRN 08/10/15 [History] Trazodone HCl [TraZODone] 100 mg PO HS 08/10/15 [History] Montelukast [Singulair] 10 mg PO DAILY 02/03/16 [History] Albuterol Sulfate [Albuterol Inhaler] 2 puff IH Q4H PRN 12/13/16 [History] Metoprolol Succinate 100 mg PO DAILY 12/13/16 [History] Oxycodone HCl/Acetaminophen [Percocet 7.5-325 mg Tablet] 1 each PO QID PRN 12/13 [History] hydrOXYzine HCl [Hydroxyzine HCl] 25 mg PO BID PRN 12/13/16 [History] Allergies/Adverse Reactions: Allergies pregabalin [From Lyrica] Allergy (Verified 08/10/15 17:43) Hives Sulfa (Sulfonamide Antibiotics) Allergy (Verified 08/10/15 17:43) Hives Varenicline [From Chantix] Adverse Reaction (Verified 07/27/15 08:38) Dizziness Procedures/tests Complete & Pending: Procedures Performed prior 72 hours Category Date Time Status EV limited echocardiogram Routine Y 12/14/16 11:25 Completed Date of admission: 12/14/16 01:38 Primary care physician: Shawn Fisher MD Consults: 12/14/16 03:04 Consult to Nutrition [CONS] Routine Comment: Consulting Provider: NUTRITION Reason for Dietary Consult: MST Score Discharging clinician: Stephanie Goncalves Anticipated date of discharge: 12/15/16 - Patient Status Disposition: Home, Self-Care Condition: Good Functional capacity at discharge: independent ambulation Overall status at discharge: patient is progressing back to baseline - Discharge Instructions Instructions: Sepsis (DC), Myocardial Infarction (DC), Diabetes Mellitus Type 2 in Adults (DC), Peripheral Vascular Disorders (DC) Follow Up With: Shawn Fisher MD [Primary Care Provider] - 12/20/16 9:45 am Additional Instructions: Follow up with cardiology in 2-3 weeks - Diet and Activity Activity: increase activity as tolerated Diet: diabetic diet, low fat, low cholesterol, low salt diet Hospital course: Ms. Castillo is a 50 year old female patient with history of coronary artery disease , COPD, dementia, diabetes, hyperlipidemia, hypertension who was admitted here with concern for sepsis and meningitis along with a rise in troponin. Patient had presented to the ER with some confusion along with some photophobia and headache and some neck pain. The patient does have chronic neck pain due to prior cervical stenosis and surgeries. There was concern for meningitis and patient underwent lumbar puncture after head CT was found to be negative. The lumbar puncture and spinal fluid analysis did not show any findings suggestive of meningitis. Patient is feeling much better already and has no clinical signs of meningitis at this time. For her troponin elevation, cardiology was consulted. They recommended doing a 2-D echocardiogram to see if there is a main any change in her echo findings. However this was found to be similar to her prior echocardiogram with an ejection fraction of 50%. As such cardiology does not recommend any further changes. Currently the patient is stable for discharge. Her sepsis has been ruled out. No signs of infection. Her urinalysis was normal. Her chest x-ray was also normal. I am stopping her ibuprofen and naproxen. Otherwise she will continue taking her usual medications. - Time Spent with Patient Total time spent providing and/or coordinating discharge services: Less than 30 minutes (25 min) - Constitutional Vitals: Temp Pulse Resp BP Pulse Ox 98.0 F 80 16 145/88 94 12/15/16 02:46 12/15/16 07:40 12/15/16 07:40 12/15/16 07:40 12/15/16 09:45 General appearance: Present: cooperative, A&O X 3, answers questions appropriately - Respiratory Respiratory exam: Present: CTAB. Absent: accessory muscle use, rales, rhonchi, wheezes - GI/Abdominal GI/Abdominal exam: Present: normal bowel sounds, soft, no peritoneal signs. Absent: distended, tenderness - Extremities Exam Extremities exam: Present: warm, radial pulses palpable and symetrical. Absent : calf tenderness, cyanotic, pedal edema - Neurological Exam Neurological exam: Present: CN II-XII intact, oriented X3, no focal deficits. Absent: facial droop, speech deficit - Skin Skin exam: Present: dry, intact - VTE Documentation of Mechanical Device: Intermittent pneumatic compression device - Attending Attestation This document has been at least partially created by [employer] voice recognition technology by Dr. Goncalves. Errors in grammar, wording or other phrases may exist. If errors are found after the documentation is signed, they will be addressed individually in the addendum section of this document when appropriate.
[2016-12-15 11:55] VITALS: BP 125/80
[2016-12-17 11:26] LABS: HSV 2 Glycoprotein G IgG CSF 0.02 IV (<=0.89)
== END 2016-12-15 12:30 | disposition home or self-care (01) | DRG 311 ==
LOC: 2ANU 20:07 → EMEROO 20:07 → 2ANU 12-14 02:23
PROVIDERS: ADMIT Internal Medicine Sleep Medicine; ATTEND Internal Medicine